=== PATIENT | male | born 2000 | race Caucasian/White ===

== ENCOUNTER 2024-02-14 20:16 | Emergency (ER) | payer MEDICAID, OTHER ==
[~2024-02-14] VITALS: Ht 172.7 cm; Wt 64.0 kg
[2024-02-14 20:20] VITALS: BP 121/79; PULSE 107; RESP 16; TEMP 97.6; O2SAT 98
[2024-02-14 21:02] VITALS: BP 121/79; PULSE 107; RESP 16; TEMP 97.6; O2SAT 98
[2024-02-14] MEDS: HYDROXYZINE HYDROCHLORIDE 25 MG TAB PO ONE (21:02)
== END 2024-02-14 21:04 | disposition home or self-care (01) ==
LOC: MED 20:16
DX: F41.9 Anxiety disorder, unspecified (principal)
CPT/HCPCS: 99283